=== PATIENT | female | born 1995 | race American Indian/Alaskan Native ===

== ENCOUNTER 2016-04-30 19:07 | Emergency (ER) | payer BC ==
[2016-04-30 19:24] VITALS: BP 140/87
[2016-04-30 19:43] LABS: Basophils % (Auto) 0.5 % (0.0-1.8); Eosinophils % (Auto) 0.3 % (0.0-4.3); Hemoglobin 13.6 gm/dl (10.1-14.3); Mean Corpuscular HGB Conc 32 % (30-34); Mean Corpuscular Hemoglobin 28 pg (28-32); Mean Corpuscular Volume 85 fl (79-97); Platelet Count 336 K/mm3 (140-440); Red Blood Count 4.92 M/mm3 (3.65-5.03); Red Cell Distribution Width 14.3 % (13.2-15.2); White Blood Count 9.3 K/mm3 (4.5-11.0)
[2016-04-30 20:03] LABS: Alanine Aminotransferase 11 units/L (7-56); Albumin 4.9 g/dL (3.9-5); Albumin/Globulin Ratio 1.4 %; Alkaline Phosphatase 70 units/L (35-129); Bilirubin,Total 0.7 mg/dL (0.1-1.2); Blood Urea Nitrogen 18 mg/dL (7-17); Calcium 9.7 mg/dL (8.4-10.2); Carbon Dioxide 24 mmol/L (22-30); Chloride 99.3 mmol/L (98-107); Glucose 93 mg/dL (65-100); Lipase 48 units/L (13-60); Potassium 3.4 mmol/L (3.6-5.0); Sodium 140 mmol/L (137-145); Total Protein 8.3 g/dL (6.3-8.2)
[2016-04-30 20:07] LABS: Anion Gap 20 mmol/L
--- NOTE | 2016-04-30 20:12 | Emergency Department Report ---
Chief Complaint: Abdominal Pain Stated Complaint: /DIZZINESS/NO APPETITE Time Seen by Provider: 04/30/16 20:12 - HPI History of Present Illness: Patient here reports that she's having abdominal pain and she is feeling dizzy and weak 3 days. She says she has no appetite. She says she found that she was 2 weeks ago by doing a home test. She is also complaining of slight stomach pain to pelvic area. Denies any vaginal bleeding or discharge. She is complaining of nausea and vomiting. Pain to lower abdomen is 7 out of 10 and cramping. Last menstrual period was 04/19/2016 - ROS Review of Systems: All systems are negative unless stated in HPI above. - Exam Vital Signs: Vital Signs 04/30/16 19:15 Temperature 97.5 F L Pulse Rate 105 H Respiratory 18 Rate Blood Pressure 140/87 Blood Pressure 140/87 [Right] O2 Sat by Pulse 100 Oximetry Physical Exam: Gen: This is a 21-year-old female well-nourished well-developed in no acute distress. Abdomen: Mild tenderness to palpate to lower abdominal quadrants.No guarding or rebound tenderness. Normal bowel sounds CV: S1, S2. Mild tachycardia 105. Regular rate and rhythm. MSE screening note: Focused history and physical exam performed. Due to findings the following was ordered:see [facility] ED Medical Decision Making - Lab Data Result diagrams: 04/30/16 19:31 04/30/16 19:31 - Medical Decision Making Medical decision making: Patient seen by provider in triage area. Appropriate protocol activated and patient to main ED to be seen by physician. ED Disposition for MSE Condition: Stable Instructions: Abdominal Pain (ED)
[2016-04-30 21:30] LABS: Bilirubin,Urine NEG (Negative); Blood,Urine NEG (Negative); Ketones,Urine 20 mg/dL (Negative); Leukocyte Esterase,Urine NEG (Negative); Mucus,Urine 3+ /HPF; Nitrite,Urine NEG (Negative)
--- NOTE | 2016-05-01 07:50 | ED Elopement Review ---
ED Pt Elopement review - Results review Lab results: Laboratory Tests 04/30/16 04/30/16 04/30/16 19:31 19:31 20:13 WBC 9.3 RBC 4.92 Hgb 13.6 Hct 42.0 MCV 85 MCH 28 MCHC 32 RDW 14.3 Plt Count 336 Lymph % (Auto) 32.9 [place] % (Auto) 10.7 H Eos % (Auto) 0.3 Baso % (Auto) 0.5 Lymph # 3.1 [place] # 1.0 H Eos # 0.0 Baso # 0.1 Seg Neutrophils % 55.6 Seg Neutrophils # 5.2 Sodium 140 Potassium 3.4 L Chloride 99.3 Carbon Dioxide 24 Anion Gap 20 BUN 18 H Creatinine 0.8 Estimated GFR > 60 BUN/Creatinine Ratio 22.50 Glucose 93 Calcium 9.7 Total Bilirubin 0.7 AST 20 ALT 11 Alkaline Phosphatase 70 Total Protein 8.3 H Albumin 4.9 Albumin/Globulin Ratio 1.4 Lipase 48 HCG, Qual Negative Urine Color Urine Turbidity Urine pH Ur Specific [place] Urine Protein Urine Glucose (UA) Urine Ketones Urine Blood Urine Nitrite Urine Bilirubin Urine Urobilinogen Ur Leukocyte Esterase Urine WBC (Auto) Urine RBC (Auto) U Epithel Cells (Auto) Urine Mucus 04/30/16 20:57 WBC RBC Hgb Hct MCV MCH MCHC RDW Plt Count Lymph % (Auto) [place] % (Auto) Eos % (Auto) Baso % (Auto) Lymph # [place] # Eos # Baso # Seg Neutrophils % Seg Neutrophils # Sodium Potassium Chloride Carbon Dioxide Anion Gap BUN Creatinine Estimated GFR BUN/Creatinine Ratio Glucose Calcium Total Bilirubin AST ALT Alkaline Phosphatase Total Protein Albumin Albumin/Globulin Ratio Lipase HCG, Qual Urine Color [place] Urine Turbidity Slightly-cloudy Urine pH 5.0 Ur Specific [place] 1.042 H Urine Protein 30 mg/dl Urine Glucose (UA) Neg Urine Ketones 20 Urine Blood Neg Urine Nitrite Neg Urine Bilirubin Neg Urine Urobilinogen 4.0 Ur Leukocyte Esterase Neg Urine WBC (Auto) 2.0 Urine RBC (Auto) 2.0 U Epithel Cells (Auto) 29.0 H Urine Mucus 3+ - Call Back decision Pt Call Back Decision: Pt to F/U with PMD
== END 2016-04-30 23:30 | disposition left against medical advice (07) ==
LOC: ED 19:07
DX: O21.9 Vomiting of pregnancy, unspecified (principal); R42 Dizziness and giddiness; R53.1 Weakness; R10.30 Lower abdominal pain, unspecified; Z3A.01 Less than 8 weeks gestation of pregnancy; Z53.21 Procedure and treatment not carried out due to patient leaving prior to being seen by health care provider
CPT/HCPCS: 36415; 80053; 81001; 83690; 84703; 85025

== ENCOUNTER 2016-05-01 08:45 | Emergency (ER) | payer BC ==
[2016-05-01 09:28] VITALS: BP 135/79
--- NOTE | 2016-05-01 10:48 | Emergency Department Report ---
Chief Complaint: Nausea/Vomiting/Diarrhea Stated Complaint: /DIZZY Time Seen by Provider: 05/01/16 10:43 - HPI History of Present Illness: Patient reports dizziness, N/V, hot flashes, difficulty breathing intermittent during the night and decreased appetite that started three days ago. Patient was in the ED last night and had labs drawn, however she eloped. LMP 2015. G1, A0, P0 - ROS Review of Systems: all other systems are unremarkable except for documentation in HPI - Exam Vital Signs: Vital Signs 05/01/16 09:23 Temperature 98.4 F Pulse Rate 91 H Respiratory 20 Rate Blood Pressure 135/79 O2 Sat by Pulse 100 Oximetry Physical Exam: Gen: well developed and nourished, NAD Abd: soft, non-distended, bowel sounds present, tenderness to palpation suprapubic and LLQ, no rebound, rigid or guarding MSE screening note: Focused history and physical exam performed. Due to findings the following was ordered: Orthostatics ordered ED Disposition for MSE Condition: Stable
--- NOTE | 2016-05-03 19:17 | ED Elopement Review ---
ED Pt Elopement review - Call Back decision Pt Call Back Decision: No action required
== END 2016-05-01 21:05 | disposition left against medical advice (07) ==
LOC: ED 08:45
DX: R42 Dizziness and giddiness (principal); R11.2 Nausea with vomiting, unspecified; R06.00 Dyspnea, unspecified; Z53.21 Procedure and treatment not carried out due to patient leaving prior to being seen by health care provider